=== PATIENT | female | born 1950 | race African-American/Black ===

== ENCOUNTER 2017-12-18 22:12 | Emergency (ER) | payer MEDICAID ==
[~2017-12-18] VITALS: Ht 165.1 cm; Wt 72.7 kg
[2017-12-18] MEDS ORDERED: ALBUTEROL (0.083%) 2.5MG/3ML NEB HHN STA (22:45)
[2017-12-18] MEDS ORDERED: PREDNISONE 20MG TABLET PO STA (22:45)
[2017-12-18] MEDS ORDERED: ASPIRIN 81MG TABLET PO ONE (22:45)
[2017-12-18] MEDS ORDERED: IPRATROPIUM BROMIDE (0.02%) 0.5MG/2.5ML NEB HHN STA (22:45)
[2017-12-18] MEDS ORDERED: KETOROLAC 30MG/ML VIAL IV STA (22:45)
[2017-12-18 23:35] LABS: BASOPHILS % 0.5 % (0.0-2.0); EOSINOPHILS % 3.4 % (0.0-5.0); HEMATOCRIT. 41.1 % (36.0-48.0); HEMOGLOBIN. 13.9 g/dL (12.0-16.0); LYMPHOCYTES % 19.1 % (20.0-50.0); MEAN CORPUSCULAR HEMOGLOBIN 31.3 pg (28.0-32.0); MEAN CORPUSCULAR VOLUME 92.3 fL (81.0-99.0); MEAN PLATELET VOLUME 9.3 fl (7.4-10.4); MONOCYTES % 10.6 % (2.0-8.0); NEUTROPHILS % 66.4 % (40.0-76.0); PLATELET 189 x1000/uL (130-400); RED BLOOD CELL COUNT 4.46 mill/uL (4.2-5.4); RED CELL DISTRIBUTION WIDTH 15.9 % (11.6-14.6)
[2017-12-18 23:38] LABS: CHLORIDE 103 mEq/L (98-107)
[2017-12-18 23:53] LABS: PARTIAL THROMBOPLASTIN TIME 28.3 sec (23.4-31.0); PROTHROMBIN TIME 9.6 sec (9.1-11.1)
[2017-12-19 00:37] VITALS: BP 153/95
[2017-12-19] MEDS ORDERED: ACETAMINOPHEN 500MG TABLET PO ONE (02:00)
== END 2017-12-19 02:02 | disposition home or self-care (01) ==
LOC: ER 22:12 → CANBEDREQ 12-19 02:09
DX: J44.1 Chronic obstructive pulmonary disease with (acute) exacerbation (principal); M54.5 Low back pain; I10 Essential (primary) hypertension; M19.90 Unspecified osteoarthritis, unspecified site; F12.10 Cannabis abuse, uncomplicated; F17.210 Nicotine dependence, cigarettes, uncomplicated; Z71.6 Tobacco abuse counseling
CPT/HCPCS: 36415; 71045; 80053; 83880; 84484; 85025; 85610; 85730; 93005; 94640; 96374; 99285; 99406; J1885; J7512; J7611